=== PATIENT | female | born 1970 | race Two or more races ===

== ENCOUNTER 2023-02-12 18:30 | Emergency (ER) | payer SELFPAY ==
[~2023-02-12] VITALS: Ht 157.5 cm; Wt 53.9 kg
[2023-02-12 19:29] LABS: Urine Bacteria NONE SEEN /hpf (None Seen); Urine Blood 1+ /uL (Negative); Urine Clarity HAZY (Clear); Urine Color Yellow (Yellow); Urine Mucus FEW (None Seen); Urine Protein, UAD TRACE (Negative); Urine Urobilinogen Normal (Negative); Urine WBC 25 /hpf (0 - 5)
[2023-02-12 19:39] LABS: Basophils # (auto) 0.1 10 ^3/uL (0-0.2); Hemoglobin 8.8 g/dL (12.2-16.2); Mean Corpuscular Hgb Conc. 31.3 g/dL (32.0-36.0); Monocytes # (auto) 0.9 10 ^3/uL (0-1.3); Monocytes % (auto) 11.2 % (0.0-12.0); Neutrophils # (auto) 5.1 10 ^3/uL (1.6-8.6); White Blood Cell 7.7 10^3/uL (4.4-10.8)
[2023-02-12 19:41] LABS: Basophils % (auto) 1.1 % (0.0-2.0); Eosinophils # (auto) 0 10 ^3/uL (0-0.8); Eosinophils % (auto) 0.5 % (0.0-7.0); Lymphocytes # (auto) 1.6 10 ^3/uL (0.4-5.4); Lymphocytes % (auto) 21.2 % (10.0-50.0); Mean Corpuscular Hemoglobin 19.6 pg (28.0-32.0); Mean Corpuscular Volume 62.7 fL (80.0-100.0); Red Blood Cells 4.46 10^6/uL (4.0-5.20)
[2023-02-12 19:43] LABS: Red Cell Distribution Width 21.7 % (11.8-14.3)
[2023-02-12 19:57] LABS: Alanine Aminotransferase 14 U/L (7-40); Albumin 4.5 g/dL (3.2-4.8); Alkaline Phosphatase 89 U/L (46-116); Anion Gap 7 (5-15); Aspartate Aminotransferase 42 U/L (13-40); BUN/Creatinine Ratio 14.3 (10.0-20.0); Bilirubin, Total 0.5 mg/dL (0.2-1.0); Blood Urea Nitrogen 12 mg/dL (9-23); Calcium 9.9 mg/dL (8.7-10.4); Carbon Dioxide 26 mmol/L (20-30); Chloride 101 mmol/L (98-107); Glucose 156 mg/dL (74-106); Sodium 134 mmol/L (136-145)
[2023-02-12 19:58] LABS: Total Protein 8.3 g/dL (5.7-8.2)
[2023-02-12 20:26] LABS: Anisocytosis Moderate; Platelet Estimate Increased
[2023-02-12 20:27] LABS: Hypochromia Marked; Stomatocytes Few
[2023-02-12] MEDS ORDERED: CEPH250C PO (21:09)
[2023-02-12] MEDS ORDERED: ZOFR4T PO (21:27)
[2023-02-12] MEDS ORDERED: NAP500T PO (21:28)
[2023-02-12 22:34] VITALS: BP 134/84; PULSE 96; RESP 16; TEMP 98.3; O2SAT 96
== END 2023-02-13 00:33 | disposition home or self-care (01) ==
LOC: ER 18:30
DX: C80.1 Malignant (primary) neoplasm, unspecified (principal); N39.0 Urinary tract infection, site not specified; E11.9 Type 2 diabetes mellitus without complications
CPT/HCPCS: 36415; 80053; 81001; 84702; 85025